=== PATIENT | female | born 2000 | race Caucasian/White ===

== ENCOUNTER 2024-09-09 23:58 | Emergency (ER) | payer BC, SELFPAY ==
[2024-09-10 00:43] VITALS: BP 94/72
[2024-09-10 01:38] LABS: % Basophils 0.3 % (0-2); % Eosinophils 0.8 % (0-6); % Immature Granulocytes 0.5 % (0-0.5); % Lymphocytes 35.2 % (20.5-51.1); % Monocytes 10.6 % (1.7-9.3); % Neutrophils 52.6 % (42.2-75.2); Absolute Eosinophils 0.1 10^3/uL (0-0.7); Absolute Immature Granulocytes 0.1 10^3/uL (0-0.05); Absolute Lymphocytes 3.4 10^3/uL (1.2-3.4); Absolute Neutrophils 5.1 10^3/uL (1.4-6.5); Hematocrit 33.7 % (37.0-47.0); Hemoglobin 11.9 g/dL (12.0-16.0); Mean Corp Hgb Conc. 35.3 g/dL (33.0-37.0); Mean Corpuscular Hgb 29.8 pg (27.0-31.0); Mean Corpuscular Volume 84.5 fL (81.0-99.0); Mean Platelet Volume 11.1 fL (7.4-10.4); Nucleated Red Blood Cells % 0 %; Platelet Count 207 10^3/uL (130-400); Red Blood Cell Count 3.99 10^6/uL (4.20-5.40); Red Cell Dist. Width 13.6 % (11.5-14.5); White Blood Cell Count 9.8 10^3/uL (4.8-10.8)
[2024-09-10 01:49] LABS: HCG, Serum Qualitative Screen Negative
[2024-09-10 01:54] LABS: Lactic Acid 0.6 mmol/L (0.7-2.0)
[2024-09-10 01:55] VITALS: BMI 24.9
[2024-09-10 01:55] LABS: ALT (SGPT) 15 U/L (0-35); AST (SGOT) 17 U/L (14-36); Albumin 3.9 g/dl (3.5-5.0); Alkaline Phosphatase 48 U/L (38-126); Blood Urea Nitrogen 13 mg/dl (7-17); Calcium 9.4 mg/dl (8.4-10.2); Carbon Dioxide 22 mmol/L (22-30); Chloride 107 mmol/L (98-107); Glucose 93 mg/dl (70-99); Sodium 140 mmol/L (135-145); Total Bilirubin 0.3 mg/dl (0.2-1.3); eGFR > 60.00
[2024-09-10 02:00] VITALS: BP 100/66
--- NOTE | 2024-09-10 02:57 | ED.GENMED ---
History of Present Illness
General
Chief Complaint: Breathing Problem
Source: patient
Exam Limitations: none
Time Seen by Provider: 09/10/24 02:26
Nursing documentation reviewed up to this point in time: agreed with
History of Present Illness
History of Present Illness:
23-year-old female with past medical history of anxiety, depression, who presents emergency department today with concerns of abdominal bloating, pelvic pain, and shortness of breath. Of note, patient was getting egg retrieval in order to freeze
her eggs and she had this procedure done yesterday. Patient reports that she follows with [facility] fertility in [facility]. Patient states that she had the procedure done at [place]. Patient denies any vaginal bleeding. Patient
states that a few hours after her procedure, she started develop some shortness of breath it has been getting worse. She denies any chest pain with this. She does note intermittent palpitations. She denies any dizziness or lightheadedness. She
denies any fevers or chills.
Review of Systems
Review of Systems
All Other Systems: ROS reviewed and negative except as documented in HPI and ROS
Phy Exam
Physical Exam
Physical Exam:
General: Patient is well appearing and in no acute distress; non-toxic
Skin: Warm and dry, no rashes or lesions
Head: Normocephalic, atraumatic
Eyes: Sclera non-icteric. EOMs intact.
Cardiac: Regular rate and rhythm, no murmurs
Peripheral Vascular: No lower extremity swelling or edema
Pulm: Normal respiratory effort, no wheezes, rales, rhonchi
Abdomen: Mild lower abdominal tenderness to palpation, no abdominal distention, normal active bowel sounds
Neuro: CN II-XII intact, no focal neurologic deficits.
Psychiatric: Appropriate mood and affect.
Course
Orders/Labs/Results
Orders:
Orders
09/10/24 01:18
Test Result ONCE
09/10/24 01:24
Complete Blood Count/With Diff Urgent
Comprehensive Metabolic Panel Urgent
HCG, Serum Qualitative Screen Urgent
Lactate Level [Lactic Acid] Urgent
09/10/24 02:56
CT Chest PE Study Urgent
Comment:
Reason For Exam: shortness of breath, chest pain
0.9% Sodium Chloride 500 ml [Nss] 500 ml IV BOLUS
US Pelvis Only (non-obstetric) Urgent
Reason For Exam: pelvic pain
09/10/24 02:57
Electrocardiogram (*1) Urgent
Reason for Study: Shortness of Breath
EKG- Treatment ONCE
09/10/24 03:14
CT Abd/pelvis W Iv Cont Urgent
Comment:
Reason For Exam: abd pain
09/10/24 04:47
0.9% Sodium Chloride 500 ml [Nss] 500 ml IV BOLUS
Abnormal Lab Results
09/10/24
01:24
RBC 3.99 L 10^6/uL
(4.20-5.40)
Hgb 11.9 L g/dL
(12.0-16.0)
Hct 33.7 L %
(37.0-47.0)
MPV 11.1 H fL
(7.4-10.4)
Abs Immat Gran (auto) 0.1 H 10^3/uL
(0-0.05)
Absolute Monos (auto) 1.0 H 10^3/uL
(0.1-0.6)
Monocytes % 10.6 H %
(1.7-9.3)
Lactic Acid 0.6 L mmol/L
(0.7-2.0)
Total Protein 6.0 L g/dl
(6.3-8.2)
09/10/24 01:24
09/10/24 01:24
Vital Signs
Initial and Last Documented VS:
Initial Vital Signs
Pulse Resp BP Pulse Ox
76 20 94/72 100
09/10/24 00:43 09/10/24 00:43 09/10/24 00:43 09/10/24 00:43
Last Documented Vital Signs
Pulse Resp BP Pulse Ox
75 18 98/62 97
09/10/24 06:06 09/10/24 06:06 09/10/24 06:06 09/10/24 06:06
MDM/Problems Addressed
Differential Diagnosis Includes:
Ovarian hyperstimulation syndrome, pulmonary embolism, pneumonia, ovarian torsion
MDM/Problems Addressed:
23-year-old female with past medical history anxiety, depression, presents emergency department today with concerns abdominal bloating, pain, and shortness of breath following a retrieval procedure. Upon arrival to emergency department, she was
mildly hypotensive, she was given IV fluids. On physical exam she is well-appearing she has abdominal distention and some mild tenderness. Considering patient had a recent procedure, there is concern for ovarian hyperstimulation syndrome. CT scan
of the chest is negative for any acute pulmonary embolus no evidence of pericardial or pleural effusion. CT to scan of the abdomen did not show some mild ascites and enlarged ovaries consistent with ovarian hyperstimulation. Patient was given more
IV fluids. There is no electrolyte derangement on blood work. Reviewed case with physician licensed loan officer assistant on-call Concha Tavarez who is known to the patient and states that this is consistent with a mild ovarian hyperstimulation syndrome. Patient
encouraged to stay well-hydrated orally and to avoid abdominal pressure. Ultrasound negative for torsion. Patient stable for discharge. She does have a follow-up appointment and will get a repeat ultrasound with the fertility clinic at 9:30 AM in
[place].
*Critical Care Note
Total Time (30-74mins, 75-104mins- exclusive of procedures): Not Applicable
ED Attending Note
-
Portions of this chart may have been created with voice recognition software.� Occasional wrong word or��sound alike� substitutions may have occurred due to the inherent limitations of voice recognition software.
Discharge Plan
Departure
Patient Disposition: Home (Routine Discharge)
Date of Disposition: 09/10/24
Time of Disposition: 06:00
Patient with high blood pressure during this ER visit?: No
Condition: Good
Discharge Problem:
Ovarian hyperstimulation syndrome
Instructions: Ovarian Hyperstimulation Syndrome
Prescriptions:
No Action
Zithromax 250 mg Capsule
250 mg PO DAILY
cabergoline 0.5 mg Tablet
0.5 mg PO DAILY
hydroxyzine HCl 10 mg Tablet
10 mg PO DAILY PRN (Reason: anxiety)
desvenlafaxine succinate [Pristiq] 25 mg Tablet Extended Release 24 Hr
25 mg PO DAILY
Referrals:
UNKNOWN - PT DOES,NOT KNOW [Family Provider] -
Activity Restrictions/Additional Instructions:
Your ultrasound did not show any evidence of ovarian torsion, your CT scan of the chest did not show any evidence of pleural effusions or pericardial effusions.
Please stay well-hydrated. Please avoid intense physical activity or exercise, please avoid any direct pressure to the abdomen. This condition puts you at high risk for ovarian torsion, please return emergency department immediately should you
develop sharp persistent pelvic pain, fevers or chills, nausea or vomiting, flank pain, back pain, lightheadedness, dizziness, vaginal bleeding, or any other signs or symptoms worrisome to you.
Please follow-up with your [facility] provider Skinny Tavarez at 9:30 am this morning in [place].
Interventions
Interventions:
*Risk Screen - Suicide Last Done: 09/10/24 00:43
*General Assessment Last Done: 09/10/24 06:10
*Neglect/Abuse Screening Last Done: 09/10/24 00:43
*ED- Fall Risk Assessment Last Done: 09/10/24 06:10
*ED COVID-19 Vaccine History Last Done: 09/10/24 06:10
*Nursing Disposition Last Done: 09/10/24 06:10
ED- Cardiac Assessment Last Done: 09/10/24 01:50
ED- Pulmonary Assessment Last Done: 09/10/24 01:50
Discharge Date and Time
Discharge Date/Time: 09/10/24 06:10
Print Language: PERSIAN
[2024-09-10 03:00] VITALS: BP 99/64
[2024-09-10] MEDS: NSS 500 IV ×2 (03:03→04:56)
[2024-09-10 03:39] VITALS: BP 110/72
[2024-09-10 04:00] VITALS: BP 101/67
[2024-09-10 06:06] VITALS: BP 98/62
== END 2024-09-10 06:10 | disposition home or self-care (01) ==
LOC: EMR 23:58
PROVIDERS: EMERGENCY PHYSICIAN Student in an Organized Health Care Education/Training Program
DX: N83.8 Other noninflammatory disorders of ovary, fallopian tube and broad ligament (principal); R14.0 Abdominal distension (gaseous); R06.02 Shortness of breath
CPT/HCPCS: 99284; 96360; 96361; 71275; 74177; 76856; 80053; 83605; 84703; 85025; 93005; Q9967